=== PATIENT | male | born 1985 | race Caucasian/White ===

== ENCOUNTER 2022-07-14 05:20 | Day surgery (SDC) | payer BC ==
[2022-07-12 14:50] LABS: BILIRUBIN,URINE NEGATIVE (NEGATIVE); BLOOD, URINE NEGATIVE (NEGATIVE); CLARITY/URINE CLEAR (CLEAR); COLOR,URINE YELLOW (YELLOW); GLUCOSE,URINE NEGATIVE (NEGATIVE); KETONES,URINE NEGATIVE (NEGATIVE); LEUKOCYTE ESTERASE ,URINE NEGATIVE (NEGATIVE); NITRITE, URINE NEGATIVE (NEGATIVE); PH,URINE 7.5 (5.0-8.0); PROTEIN URINE NEGATIVE (NEGATIVE)
[2022-07-12 15:00] LABS: BASOPHILS % (AUTO) 0.5 % (0.0-2.0); EOSINOPHILS # (AUTO) 0.2 K/uL (0.0-0.4); EOSINOPHILS % (AUTO) 4.1 % (0.0-4.0); HEMATOCRIT 43.6 % (36-54); LYMPHOCYTES # (AUTO) 1.8 K/uL (1.0-5.5); LYMPHOCYTES % (AUTO) 29.8 % (20.5-51.5); MEAN CORPUSCULAR HEMOGLOBIN 32 pg (27-31); MEAN CORPUSCULAR HGB CONC 34 % (32-36); MEAN CORPUSCULAR VOLUME 92 fL (79.0-98.0); MONOCYTES # (AUTO) 0.6 K/uL (0.0-1.0); NEUTROPHILS # (AUTO) 3.3 K/uL (1.8-7.7); NEUTROPHILS % (AUTO) 55.6 % (40.0-70.0); PLATELET COUNT (AUTO) 324 K/uL (130-430); RED BLOOD CELL COUNT(AUTO) 4.76 MIL/uL (4.2-6.2); RED CELL DISTRIBUTION WIDTH 14.2 % (9.0-15.0); WHITE BLOOD COUNT (AUTO) 5.9 K/uL (4.8-10.8)
[2022-07-12 15:10] LABS: CALCIUM 9.3 mg/dL (8.4-11.0); CREATININE 0.96 mg/dL (0.55-1.30); INR 0.9 (0.80-1.20); PROTHROMBIN TIME 9.7 SECS (9.5-12.5)
[~2022-07-14] VITALS: Ht 170.2 cm; Wt 86.2 kg
[2022-07-14] MEDS ORDERED: fentaNYL CITRATE 250 MCG/5 ML AMP IV ONE (07:34)
[2022-07-14] MEDS ORDERED: NS IRRIG SOLN 1000 ML IR ONE (07:34)
[2022-07-14] MEDS ORDERED: LIDOCAINE 2%, 20 ML MDV INJ ONE (07:34)
[2022-07-14] MEDS ORDERED: PROPOFOL 200MG/ 20ML VIAL (DIPRIVAN) IV ONE (07:34)
[2022-07-14] MEDS ORDERED: CEFAZOLIN 2 GM IVPB PREMIX 50 ML IV ONE (07:34)
[2022-07-14] MEDS ORDERED: EPINEPHrine JECT 0.1 MG/ML SYR IVP ONE (07:34)
[2022-07-14] MEDS ORDERED: ONDANSETRON HCL 4 MG/2 ML VIAL IVP ONE (07:34)
[2022-07-14] MEDS ORDERED: KETOROLAC TROMETHAMINE 30 MG VIAL IVP ONE (07:34)
[2022-07-14] MEDS ORDERED: BUPIVACAINE /PF 0.25% 30 ML VIAL INJ ONE (07:34)
[2022-07-14] MEDS ORDERED: SEVOFLURANE 15 MIN GAS INH ONE (07:34)
[2022-07-14] MEDS ORDERED: LIDOCAINE/EPI 2% 1:100000 20 ML VIAL INJ ONE (07:34)
[2022-07-14] MEDS ORDERED: NS IRRIG SOLN 5000 ML IR ONE (07:34)
[2022-07-14] MEDS ORDERED: MIDAZOLAM HCL 5 MG/5 ML VIAL IVP ONE (07:34)
[2022-07-14] MEDS ORDERED: LR 1,000 ML IV.SOLN IV ONE (07:34)
[2022-07-14] MEDS ORDERED: DEXAMETHASONE SOD PHOSPHATE 4 MG/ML VIAL IVP ONE (07:34)
[2022-07-14] MEDS ORDERED: MIDAZOLAM HCL 2 MG/2 ML VIAL (VERSED) IVP PRN (08:30)
[2022-07-14] MEDS ORDERED: LR 1,000 ML IV SCH (08:30)
[2022-07-14] MEDS ORDERED: METOCLOPRAMIDE HCL 10 MG/2 ML VIAL IVP PRN (08:30)
[2022-07-14] MEDS ORDERED: MEPERIDINE HCL/PF 25 MG/ML DISP.SYRIN IVP PRN (08:30)
[2022-07-14] MEDS ORDERED: HYDROmorphone 1 MG/ML INJ. CARTRIDGE IVP PRN ×2 (08:30)
[2022-07-14] MEDS ORDERED: ACETAMINOPHEN I.V. 1000 MG 100 ML IV ONE (08:44)
[2022-07-14] MEDS ORDERED: HYDROmorphone 1 MG/ML INJ. CARTRIDGE ONE ×2 (11:38→12:02)
[2022-07-14 16:04] VITALS: BP_SYST 149
== END 2022-07-14 15:25 | disposition home or self-care (01) ==
LOC: SDS 05:20 → SMU 05:20 → SDS 15:25
PROVIDERS: ATTEND Orthopaedic Surgery Sports Medicine
DX: M23.612 Other spontaneous disruption of anterior cruciate ligament of left knee (principal); M23.322 Other meniscus derangements, posterior horn of medial meniscus, left knee; M71.341 Other bursal cyst, right hand; F17.210 Nicotine dependence, cigarettes, uncomplicated; Z79.899 Other long term (current) drug therapy; Z20.822 Contact with and (suspected) exposure to COVID-19; Z79.01 Long term (current) use of anticoagulants
CPT/HCPCS: 80048; 85025; 85610; 85730; 36415 ×2; 81003; 27428; 64447; 26111; 29883; 76942; 88304; 87426; U0003; J3490; J0690; J1100; J0171; J1885; J2001; J2250; J2405; J2704; J3010; J1170; J7120; C1713 ×5; J0131